=== PATIENT | female | born 1960 | race Caucasian/White ===

== ENCOUNTER → 2017-01-22 | Outpatient (CLI) | payer MEDICAID ==
--- NOTE | 2017-01-22 09:28 | MM ---
Reason for exam: screening (asymptomatic). Last mammogram was performed 1 year and 7 months ago. History: Patient is postmenopausal. Benign excisional biopsy of the left breast, October 10, 2010. Retro-pectoral silicone gel implants in both breasts, 2006. Benign excisional biopsy of the left breast, 2002. Took hormonal contraceptives for 7 years beginning at age 47. Physical Findings: A clinical breast exam by your physician is recommended on an annual basis and results should be correlated with mammographic findings. MG 3D Screen Mammo Imp/Cad Bilateral CC, MLO, and ID view(s) were taken. Prior study comparison: June 30, 2015, bilateral MG 3d diag mammo imp w/cad BLESSING. March 16, 2014, bilateral MG diagnostic mammo w CAD BLESSING. March 10, 2013, CAD bilateral diagnostic mammogram. The breast tissue is heterogeneously dense. This may lower the sensitivity of mammography. Finding: There are typically benign round calcifications in both breasts. Subpectoral implants x2. ASSESSMENT: Benign, BI-RAD 2 RECOMMENDATION: Routine screening mammogram of both breasts.
== END | disposition home or self-care (01) ==
LOC: RADMAMWWP 06:46
PROVIDERS: ATTEND Obstetrics & Gynecology
DX: Z12.31 Encounter for screening mammogram for malignant neoplasm of breast (principal); Z98.82 Breast implant status
CPT/HCPCS: 77063; G0202

== ENCOUNTER → 2017-03-26 | Outpatient (CLI) | payer MEDICAID ==
--- NOTE | 2017-03-26 08:05 | BD ---
EXAMINATION TYPE: MG DEXA axial skeleton. DATE OF EXAM: 03/26/2017 COMPARISON: NONE CLINICAL HISTORY: Height: 63 IN Weight: 129 LBS FRAX RISK QUESTIONS: Alcohol (3 or more units per day): NO Family History (Parent hip fracture): NO Glucocorticoids (More than 3mos): NO (Ex: prednisone, prednisolone, methylprednisolone, dexamethasone, and hydrocortisone). History of Fracture in Adulthood: NO Secondary Osteoporosis: 1. Type 1 Diabetes: NO 2. Hyperthyroidism: NO 3. Menopause before 45: NO 4. Malnutrition: NO 5. Chronic liver disease: NO Rheumatoid Arthritis: NO Current Tobacco Use: NO RISK FACTORS HISTORY OF: Active: YES Postmenopausal woman: NOT NOW Take estrogen and/or progesterone medications: CONTROL AGE 47-53 How long: AGE 47 - 52 MEDICATIONS: Additional Medications: WELLBUTRIN, AMBIEN NEEDED, ZYRTEC, OXYBUTIN EXAM MEASUREMENTS: Bone mineral densitometry was performed using the [email or web address] System. Bone mineral density as measured about the Lumbar spine is: ----- L1-L4(G/cm2): 1.023 T Score Values are as follows: ----- L2: -1.4 ----- L3: -0.9 ----- L4: -1.4 ----- L1-L4: -1.3 Bone mineral density BASELINE Bone mineral density about the R hip (g/cm2): 0.915 Bone mineral density about the L hip (g/cm2): 0.901 T Score values are as follows: -----R Neck: -0.9 -----L Neck: -1.0 -----R Total: -1.0 -----L Total: -0.8 Bone mineral density BASELINE IMPRESSION: Findings compatible with mild osteopenia NOTE: T-SCORE=SD OF THE YOUNG ADULT MEAN.
== END | disposition home or self-care (01) ==
LOC: RADBDWWP 07:17
PROVIDERS: ATTEND Obstetrics & Gynecology
DX: N95.1 Menopausal and female climacteric states (principal)
CPT/HCPCS: 77080